=== PATIENT | female | born 1970 | race Caucasian/White ===

== ENCOUNTER 2017-10-08 07:00 | Day surgery (SDC) | payer BC ==
[~2017-10-08 07:00] MED LIST: Lidocaine 1%/Sod Bicarbonate in NS 8.4% 1 ML Syringe IDERM PRN; Sodium Chloride 0.9% 10 ML Syringe FLUSH PRN
[2017-10-08] MEDS ORDERED: Bupivacaine 0.25% 30 ML SDV ONE (07:06)
[2017-10-08] MEDS ORDERED: Ropivacaine 0.5% 5 MG/ML 30 ML SDV ONE (07:19)
[2017-10-08] MEDS ORDERED: EPINEPHrine 1 MG/ML SDV ONE (07:20)
[2017-10-08] MEDS ORDERED: Midazolam 1 MG/ML 2 ML SDV ONE (07:22)
[2017-10-08] MEDS ORDERED: fentaNYL 100 MCG/2 ML SDV ONE ×2 (07:22→08:32)
[2017-10-08] MEDS ORDERED: ceFAZolin 1 GM Vial ONE (07:22)
[2017-10-08] MEDS ORDERED: Rocuronium 50 MG/5 ML Vial ONE (07:22)
[2017-10-08] MEDS ORDERED: Ondansetron 4 MG/2 ML SDV ONE (07:22)
[2017-10-08] MEDS ORDERED: Propofol 200 MG/20 ML SDV ONE (07:22)
[2017-10-08] MEDS ORDERED: Lidocaine 1% 4 ML ONE (07:22)
[2017-10-08] MEDS: Lactated Ringers 1,000 ML IV SCH ×3 (07:25→14:02)
[2017-10-08] MEDS ORDERED: Lidocaine 1% 2 ML ONE (07:35)
--- NOTE | 2017-10-08 07:43 | PCM.PREANE ---
Preanesthetic Assessment - Anesthesia/Transfusion/Family Hx Anesthesia History: Prior Anesthesia Without Reaction Family History of Anesthesia Reaction: No Transfusion History: No Prior Transfusion(s) Intubation History: Unknown - Review of Systems General: No Symptoms Pulmonary: No Symptoms Cardiovascular: No Symptoms Gastrointestinal: No Symptoms Neurological: No Symptoms Other: Reports: None - Physical Assessment NPO Status Date: 10/07/17 NPO Status Time: 00:00 Pulse: 82 O2 Sat by Pulse Oximetry: 96 Respiratory Rate: 17 Blood Pressure: 119/74 Temperature: 37.1 C Height: 21.79 m Weight: 97.522 kg ASA Class: 1 Mental Status: Alert & Oriented x3 Airway Class: Mallampati = 1 Dentition: Reports: Normal Dentition Thyro-Mental Finger Breadths: 3 Mouth Opening Finger Breadths: 3 ROM/Head Extension: Full Lungs: Clear to Auscultation, Normal Respiratory Effort Cardiovascular: Regular Rate, Regular Rhythm, No Murmurs - Lab Values: Laboratory Last Values MRSA (PCR) Negative 10/06/17 14:18 - Allergies Allergies/Adverse Reactions: Allergies Allergy/AdvReac Type Severity Reaction Status Date / Time No Known Allergies Allergy Verified 10/07/17 15:46 - Blood Blood Available: No Product(s) Available: None - Anesthesia Plan Pre-Op Medication Ordered: None - Acknowledgements Anesthesia Type Planned: General Anesthesia, Regional Block (interscalene block for post-op pain control) Pt an Appropriate Candidate for the Planned Anesthesia: Yes Alternatives and Risks of Anesthesia Discussed w Pt/Guardian: Yes Pt/Guardian Understands and Agrees with Anesthesia Plan: Yes PreAnesthesia Questionnaire HEENT History: Reports: Impaired Vision, Other (See Below) Other HEENT History: wears contacts Cardiovascular History: Reports: None Respiratory History: Reports: None Gastrointestinal History: Reports: None Genitourinary History: Reports: None [employer] History: Reports: Musculoskeletal History: Neurological History: Reports: None Psychiatric History: Reports: None Endocrine/Metabolic History: Reports: None Hematologic History: Reports: None Immunologic History: Reports: None Oncologic (Cancer) History: Reports: None Dermatologic History: Reports: None - Past Surgical History Head Surgeries/Procedures: Reports: None Cardiovascular Surgical History: Reports: None Respiratory Surgical History: Reports: None GI Surgical History: Reports: None Female Surgical History: Reports: Section Male Surgical History: Reports: None Endocrine Surgical History: Reports: None Neurological Surgical History: Reports: None Musculoskeletal Surgical History: Reports: Arthroscopic Knee, Ganglion Cyst Oncologic Surgical History: Reports: None Dermatological Surgical History: Reports: None - SUBSTANCE USE Smoking Status *Q: Never Smoker Tobacco Use Within Last Twelve Months: No Second Hand Smoke Exposure: No Days Per Week of Alcohol Use: 0 Number of Drinks Per Day: 0 Total Drinks Per Week: 0 Recreational Drug Use History: No - HOME MEDS Home Medications: Home Meds Acetaminophen/HYDROcodone [Exchange 325-5 MG] 1 - 2 tab PO Q6H PRN #40 tablet 10/06 [Rx] Ondansetron [Zofran ODT] 4 mg PO Q6H PRN #20 tab.dis 10/06/17 [Rx] Cyclobenzaprine [Flexeril] 10 mg PO BEDTIME PRN #30 tab 10/08/17 [Rx] - CURRENT (IN HOUSE) MEDS Current Meds: Current Medications Epinephrine HCl (Adrenalin) 3 mg IV ONETIME ONE Stop: 10/08/17 08:01 Lactated Ringer's (Ringers, Lactated) 1,000 mls @ 125 mls/hr IV ASDIRECTED JENNY Lidocaine/Sodium Bicarbonate (Buffered Lidocaine 1% In Ns 8.4%) 0.25 ml IDERM ONETIME PRN PRN Reason: Prior to IV Start Sodium Chloride (Saline Flush) 10 ml FLUSH ASDIRECTED PRN PRN Reason: Keep Vein Open Discontinued Medications Bupivacaine HCl (Marcaine 0.25%) Confirm Administered Dose 30 ml .ROUTE .STK- MED ONE Stop: 10/08/17 07:07 Cefazolin Sodium (Ancef) Confirm Administered Dose 2 gm .ROUTE .STK-MED ONE Stop: 10/08/17 07:23 Epinephrine HCl (Adrenalin) Confirm Administered Dose 1 mg .ROUTE .STK-MED ONE Stop: 10/08/17 07:21 Fentanyl (Sublimaze) Confirm Administered Dose 100 mcg .ROUTE .STK-MED ONE Stop: 10/08/17 07:23 Lidocaine HCl (Xylocaine-Mpf 1%) Confirm Administered Dose 4 mls @ as directed .ROUTE .STK-MED ONE Stop: 10/08/17 07:23 Lidocaine HCl (Xylocaine-Mpf 1%) Confirm Administered Dose 2 mls @ as directed .ROUTE .STK-MED ONE Stop: 10/08/17 07:36 Midazolam HCl (Versed 1 Mg/Ml) Confirm Administered Dose 2 mg .ROUTE .ST-MED ONE Stop: 10/08/17 07:23 Ondansetron HCl (Zofran) Confirm Administered Dose 4 mg .ROUTE .ST-MED ONE Stop: 10/08/17 07:23 Propofol (Diprivan 20 Ml) Confirm Administered Dose 200 mg .ROUTE .[facility]-MED ONE Stop: 10/08/17 07:23 Rocuronium [place] (Zemuron) Confirm Administered Dose 50 mg .ROUTE .ST-MED ONE Stop: 10/08/17 07:23 Ropivacaine (Naropin 0.5%) Confirm Administered Dose 30 ml .ROUTE .[facility]-MED ONE Stop: 10/08/17 07:20
[2017-10-08] MEDS ORDERED: EPINEPHrine 1 MG/ML 30 ML MDV IV ONE (08:00)
[2017-10-08] MEDS ORDERED: Lactated Ringers 1,000 ML ONE (09:04)
[2017-10-08] MEDS ORDERED: fentaNYL 100 MCG/2 ML SDV IVPUSH PRN (09:27)
--- NOTE | 2017-10-08 09:29 | PCM.POSTAN ---
POST ANESTHESIA ASSESSMENT - MENTAL STATUS Mental Status: Somnolent - VITAL SIGNS Pulse Rate: 108 SaO2: 92 Resp Rate: 15 Blood Pressure: 127/67 Temperature: 36.2 C - RESPIRATORY Respiratory Status: Respiratory Rate WNL, Airway Patent, O2 Saturation Stable, Supplemental Oxygen - CARDIOVASCULAR CV Status: Pulse Rate WNL, Blood Pressure Stable - GASTROINTESTINAL GI Status: No Symptoms - PAIN Pain Score: 0 - POST OP HYDRATION Hydration Status: Adequate & Stable - OBSERVATIONS Free Text/Narrative:: no anesthesia complications noted
[2017-10-08] MEDS ORDERED: Haloperidol Lactate 5 MG/ML SDV IVPUSH PRN (09:33)
[2017-10-08] MEDS ORDERED: LORazepam 2 MG/ML SDV IVPUSH ONE (09:45)
--- NOTE | 2017-10-08 10:05 | PCM.SN ---
- Free Text/Narrative Note: Note: 10/08/2017 1001 119/78 92 95% 19 Surgeon and pt request post-op pain control for left shoulder surgery risk of block failure, facial numbness, site infection, and chronic pain discussed with pt and agreed to proceed. All standard monitors est. EKG, BP, Pulse Ox, 2L O2 and 2ml versed, 2ml fentanyl pre-op dx. left shoulder pain post-op dx left shoulder video arthroscopy pt for interscalene block placement all standard monitors est. pt ID time out performed IV sedation 2ml versed, 2ml fentanyl, 2L NC O2, sterile prep and drape of left neck and shoulder U/S placed with visualization of brachial plexus from clavicle to cricoid local skin infiltration 22ga. Stimplex A insulated needle visualized at brachial plexus nerve stimulator at .9 Elizabeth Amps stop at .4 Elizabeth Amps with good bicep twitch with 1ml NaCl and lose of twitch neg aspirations every 5ml of 0.5% ropivacaine and 1:200,000 epi total of 30ml injected all done with U/S guidance needle withdrawn no complications noted pt tolerated procedure well block settling in start procedure at 0751 end procedure at 0803 123/79 94 100% 14
[2017-10-08] MEDS ORDERED: Promethazine 6.25 MG in Sodium Chloride 0.9% 50 ML IV PRN (12:08)
[2017-10-08] MEDS ORDERED: diphenhydrAMINE 50 MG/ML SDV IVPUSH ONE (13:48)
--- NOTE | 2017-10-16 07:51 | PCM.OPNOTE ---
- General Post-Op/Procedure Note Date of Surgery/Procedure: 10/08/17 Operative Procedure(s): left shoulder video arthrscopy with biceps tenodesis and limited debridement Pre Op Diagnosis: left shoulder biceps tendinopathy Post-Op Diagnosis: same with glenohumeral arthrosis Anesthesia Technique: General ET Tube, Regional Block Primary Surgeon: Mitesh Soriano Anesthesia Provider: Parminder Veliz Insurance Salesperson: Maggy Garcia EBL in mLs: 5 Complications: None Condition: Good
--- NOTE | 2017-10-16 09:19 | OR ---
DATE OF OPERATION: 10/08/2017 SURGEON: Mitesh Soriano MD OPERATION PERFORMED: Left shoulder video arthroscopy, biceps tenodesis, limited debridement. PREOPERATIVE DIAGNOSIS: Left shoulder biceps tendinopathy. POSTOPERATIVE DIAGNOSIS: 1. Left shoulder biceps tendinopathy. 2. 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 3. 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 ANESTHESIA: General endotracheal intubation with regional interscalene block. ANESTHESIOLOGIST: Parminder Veliz CRNA. CHRISTIAN SCIENCE NURSE: Maggy Garcia PA-C. ESTIMATED BLOOD LOSS: 5 mL. COMPLICATIONS: None. CONDITION: Stable. DESCRIPTION OF PROCEDURE: The patient was identified in the preop holding area where proper site was marked and identified by the surgeon. The patient was taken back to the operating theater where after adequate anesthesia, the patient was placed in a lazy right lateral decubitus position. The wedge was placed posteriorly. All bony prominences were well padded. The patient was secured to the table. At this time, the left upper extremity was sterilely prepped and draped in the usual sterile fashion. OR time-out was performed. The patient received 2 g IV Ancef. A 12 pound of traction was applied to the left upper extremity. Standard posterior incision was made. The scope trocar was introduced through the glenohumeral joint. With the use of a spinal needle, an anterior portal was also created. The biceps showed significant fraying near its insertion as well as significant erythema. At this time, the patient was also noted to have grade 3-4/4 chondromalacia defects in the central portion of the glenoid. The patient was also noted to have a large grade 3/4 chondromalacia with changes noted to the humeral head, measuring roughly 3 cm x 3 cm and then grade 2 changes throughout. The patient's undersurface of the rotator cuff was intact with just slight delamination noted. At this time, a #2 FiberWire was placed through the rotator interval with the use of a spinal needle into the biceps. At this time, a biceps tenotomy was performed for later tenodesis in the rotator interval. Any loose or foreign bodies were irrigated out of the glenohumeral joint at this time. Scope was then placed in the subacromial space and a limited debridement was done, so that we were able to find the limbs of the FiberWire. At this time, the FiberWire was found in the rotator interval, was then tied arthroscopically for the biceps tenodesis in the rotator interval. At this time, the rest of the rotator cuff looked intact, excess saline was drained from the shoulder. 3-0 nylon simple suture was used for closure of the skin. The patient was sent to PACU in stable condition. GRECIA /[id number]
== END 2017-10-08 14:50 | disposition home or self-care (01) ==
LOC: JD.SDS 07:00
PROVIDERS: ATTEND Orthopaedic Surgery
DX: S46.212A Strain of muscle, fascia and tendon of other parts of biceps, left arm, initial encounter (principal); M94.212 Chondromalacia, left shoulder; X50.9XXA Other and unspecified overexertion or strenuous movements or postures, initial encounter; Z79.899 Other long term (current) drug therapy
CPT/HCPCS: 29828; 87641; J0171; J0690; J1200; J1630; J2060; J2250; J2405; J2550; J2795; J3010; J3490; J7050; J7120; J2704